=== PATIENT | female | born 1975 | race Caucasian/White ===

== ENCOUNTER 2017-07-03 11:33 | Observation (INO) | payer OTHER ==
[2017-07-03] MEDS ORDERED: ONDANSETRON 4 MG/2 ML VIAL IVP ONE (11:59)
[2017-07-03 12:21] LABS: % IMMATURE GRANULYOCYTES 0.6 % (0.0-1.1); ABSOLUTE IMMATURE GRANULOCYTES 0.06 10^3/uL (0.00-0.10); ADD DIFF? NO; ADD MORPH? NO; ADD SCAN? NO; ATYPICAL LYMPHOCYTE FLAG 0 (0-99); FRAGMENT RBC FLAG 0 (0-99); HEMATOCRIT 40.7 % (38.0-47.0); HEMOGLOBIN 13.5 g/dL (12.6-16.3); LEFT SHIFT FLG 0 (0-99); LIPEMIA HEMOLYSIS FLAG 80 (0-99); MEAN CELL HEMOGLOBIN 30.1 pg (27.9-34.1); MEAN CELL HEMOGLOBIN CONCENTR. 33.2 g/dL (32.4-36.7); MEAN CELL VOLUME 90.8 fL (81.5-99.8); MEAN PLATELET VOLUME 9.9 fL (8.7-11.7); PLATELET CLUMPS FLAG 0 (0-99); PLATELET COUNT 259 10^3/uL (150-400); RED BLOOD CELL COUNT 4.48 10^6/uL (4.18-5.33); RED CELL DISTRIBUTION WIDTH 12.5 % (11.5-15.2)
[2017-07-03 12:26] LABS: COLOR YELLOW; LEUKOCYTE ESTERASE,URINE NEGATIVE (NEGATIVE); NITRITE,URINE NEGATIVE (NEGATIVE)
[2017-07-03 12:29] LABS: MUCUS TRACE /lpf (NONE-1+)
[2017-07-03 12:33] LABS: ALANINE AMINOTRANSFERASE 38 IU/L (9-52); ALBUMIN 4.6 g/dL (3.5-5.0); ALKALINE PHOSPHATASE 79 IU/L (38-126); ANION GAP 14 mEq/L (8-16); ASPARTATE AMINOTRANSFERASE 22 IU/L (14-46); BILIRUBIN,TOTAL 0.7 mg/dL (0.1-1.4); CALCIUM 9.5 mg/dL (8.5-10.4); CARBON DIOXIDE 20 mEq/l (22-31); CHLORIDE 105 mEq/L (97-110); CREATININE 0.7 mg/dL (0.6-1.0); GLOMERULAR FILTRATION RATE > 60; GLUCOSE 92 mg/dL (70-100); POTASSIUM 4.3 mEq/L (3.5-5.2); SODIUM 139 mEq/L (134-144); TOTAL PROTEIN 7.4 g/dL (6.3-8.2)
--- NOTE | 2017-07-03 13:18 | EDPHY ---
H & P Stated Complaint: L SIDED ABDOMINAL PAIN, PANIC ATTACK HPI/ROS: CHIEF COMPLAINT: Flank and lower abdominal pain HISTORY OF PRESENT ILLNESS: This is a healthy 41-year-old female 0 2, 11 months , with the acute onset of left flank and lower abdominal pain earlier this morning. The pain has been persistent. It is severe. She has not taken any medications for this pain. She denies fever, dysuria, urgency, frequency, and hematuria. REVIEW OF SYSTEMS: A ten point review of systems was performed and is negative with the exception of the items mentioned in the HPI. Past medical history: 0 2 Past surgical history: section x2 Family history: Noncontributory Social history: She lives in [facility]. She is here for a conference. No tobacco use. Social alcohol. General Appearance: Alert. Crying, rubbing that her left lower abdomen. Vital signs reviewed. Eyes: Pupils equal and round, no conjunctival injection, no discharge. Anicteric. ENT, Mouth: Mucous membranes are moist, no oropharyngeal erythema or edema. Neck: No lymphadenopathy, supple. Respiratory: Lungs are clear to auscultation; no wheezes, rales, or rhonchi. Cardiovascular: Regular rate and rhythm; no murmur, rub, or gallop. Gastrointestinal: Abdomen is soft and nontender, no masses or organomegaly, bowel sounds normal. Skin: Warm and dry, no rashes on exposed skin, normal color. Back: Nontender to palpation over the thoracolumbar spine. Left CVA tenderness. Extremities: No lower extremity edema, no calf tenderness or swelling. Know left hip tenderness and no pain with active range of motion of the left hip. Neurological: Alert and oriented. Moving all four extremities easily and equally. Psychiatric: Normal affect. - Personal History LMP (Females 10-55): Unknown Current Tetanus Diphtheria and Acellular Pertussis (TDAP): Yes Tetanus Vaccine Date: < 10 YEARS - Medical/Surgical History Hx Asthma: No Hx Chronic Respiratory Disease: No Hx Diabetes: No Hx Cardiac Disease: No Hx Renal Disease: No Hx Cirrhosis: No Hx Alcoholism: No Hx HIV/AIDS: No Hx Splenectomy or Spleen Trauma: No Other PMH: DENIES - Social History Smoking Status: Never smoked Constitutional: Initial Vital Signs Temperature (C) 36.6 C 07/03/17 11:38 Heart Rate 72 07/03/17 11:38 Respiratory Rate 16 10/06/17 11:38 Blood Pressure 121/77 H 07/03/17 11:38 O2 Sat (%) 100 07/03/17 11:38 O2 Delivery Mode Room Air Allergies/Adverse Reactions: No Known Allergies Allergy (Verified 07/03/17 19:28) Home Medications: Medication Instructions Recorded Hydrocodone/APAP 5/325 [[place] 2 tab PO Q4HRS PRN #7 tab 07/04/17 5/325 (*)] Ibuprofen [Motrin (*)] 600 mg PO Q6HRS PRN tab 07/04/17 Medical Decision Making ED Course/Re-evaluation: Left flank and lower abdominal pain. Differential includes ureterolithiasis, pyelonephritis, ovarian cyst, and ovarian torsion. She does not have hematuria. Her presentation is suggestive of ureterolithiasis. She is not . 1 L normal saline IV administered. She has also received Zofran prior to my evaluation. Toradol ordered. CT of the abdomen and pelvis ordered. CT scan reported to me by Dr. Paz shows a 5 x 4 cm complex cyst that appears to be adjacent to or related to the left adnexa. There is some stranding in the posterior mesenteric in the mesentery, posterior to the cecum. The appendix appears normal. Because of the acute and constant nature of her pain, ultrasound obtained. It was reported to me by Dr. Paz as showing a cyst that appears to be serpiginous. He wonders if there could be a fallopian tube torsion versus pyosalpinx. Patient initially declined pain medication. She has been serially examined by me while in the emergency department. She has had persistent left lower quadrant tenderness and ultimately agreed to accept some pain medication. She was given Dilaudid intravenously with good effect. She was much more comfortable after receiving this pain medication. She has not been febrile while in the department. Her white blood cell count is only very mildly elevated. Infection seems unlikely. Urinalysis is negative for signs of urinary tract infection. I do not suspect pyelonephritis at this point. It seems that her pain is related to the mass that is seen in imaging studies. The exact nature of this mass not determined. I have spoken with Dr. Parker of OBGYN. Either she or one of her colleagues will assess the patient in the emergency department. Dr. Krystyna Huerta evaluated the patient in the emergency department. Pelvic exam was performed by her. In discussion with the patient it was determined that she will be admitted for pain control and observation. Surgical exploration was offered but is deferred at this point in time. - Data Points Laboratory Results: Laboratory Results 07/03/17 11:55 07/03/17 11:55 Medications Given: Discontinued Medications Hydrocodone Bitart/Acetaminophen ([place] 5/325) 2 tab PO Q4HRS PRN PRN Reason: Pain, Moderate Able to Take PO Stop: 07/13/17 21:46 Last Admin: 07/04/17 11:59 Dose: 2 tab Hydromorphone HCl (Dilaudid) 0.5 mg IVP EDNOW ONE Stop: 07/03/17 15:52 Last Admin: 07/03/17 16:06 Dose: 0.5 mg Hydromorphone HCl (Dilaudid) 0.5 mg IVP EDNOW ONE Stop: 07/03/17 16:33 Last Admin: 07/03/17 16:44 Dose: 0.5 mg Ibuprofen (Motrin) 600 mg PO Q6HRS PRN PRN Reason: Pain, Inflammatory Stop: 12/31/17 08:19 Last Admin: 07/04/17 12:02 Dose: 600 mg Ketorolac Tromethamine (Toradol) 15 mg IVP EDNOW ONE Stop: 07/03/17 13:36 Last Admin: 07/03/17 13:46 Dose: 15 mg Ketorolac Tromethamine (Toradol) 30 mg IVP ONCE ONE Stop: 07/03/17 21:47 Last Admin: 07/03/17 21:57 Dose: 30 mg Ondansetron HCl (Zofran) 4 mg IVP EDNOW ONE Stop: 07/03/17 12:00 Last Admin: 07/03/17 12:58 Dose: 4 mg Departure - Departure Disposition: [facility] Inpatient Acute Clinical Impression: Adnexal mass Condition: Good
[2017-07-03] MEDS ORDERED: KETOROLAC 30 MG/1 ML SDV IVP ONE ×2 (13:35→21:46)
[2017-07-03] MEDS ORDERED: HYDROmorphONE/DILAUDID 1 MG/ML INJ IVP ONE ×2 (15:51→16:32)
--- NOTE | 2017-07-03 20:26 | GCON ---
[f rep st] CONSULTATION DATE OF CONSULTATION: 07/03/2017 CHIEF COMPLAINT: Abdominal pain. HISTORY OF PRESENT ILLNESS: This is an otherwise healthy 41-year-old female who presents with an acu te onset abdominal pain this morning. The patient is originally from [place] and visiting in [facility]. Last night as part of a business get together she had some alcoholic drinks, probably in excess, states she woke up this morning with a headache and some abdominal pain that she attributed initially to a hang over, but that the headache resolved and the pain persisted and relocated to her left lower quadrant. As the pain persisted and actually worsened, she actually called a cab to prese nt to the emergency department and states that on the cab ride over there was fairly excruciating paige n. She describes the pain as left lower quadrant in nature, constant, better with IV narcotics. Not worse with palpation. She described it currently as an 8/10 in intensity with 10/10 previously. Jorje gambino did have nausea with the pain initially, but that has resolved. No vomiting. No diarrhea. No fev ers. No chills. In the emergency department she was medicated and hydrated. The pain is somewhat better although it persists. She was originally consulted by the on-call radiology services manager, Dr. Huerta. The patient had imagi ng including a noncontrast CT scan and an ultrasound which shows possible left-sided ovarian and/or f allopian tube pathology. Other than the pain, the patient has no complaints. PAST MEDICAL HISTORY: None. PAST SURGICAL HISTORY: section x2. FAMILY HISTORY: None. SOCIAL HISTORY: Lives in [place]. Social alcohol. Denies illicit drug use. Works for a [employer]. REVIEW OF SYSTEMS: A full 10-point review was performed and unless explicitly stated above, is other ann negative. PHYSICAL EXAMINATION: VITAL SIGNS: Temperature 36 even, blood pressure 117/85, heart rate 76, and s he is 94% on room air with respirations at 16. CONSTITUTIONAL: She is alert, in no apparent distress . She appears comfortable. EYES: Her pupils are equal, round, and reactive to light and accommodat ion. She has anicteric sclerae. EARS, NOSE, MOUTH AND THROAT: She has moist mucous membranes with normal hearing. No mucosal ulcers. CARDIOVASCULAR: She has a regular rate and rhythm without any m urmurs. RESPIRATORY: She has no respiratory distress. No rales, no rhonchi. GI: She has normoact lauryn bowel sounds. ABDOMEN: Soft. She is tender in the left pelvis just adjacent to the ASIS with d eep palpation. She has no rebound tenderness or guarding. She has a well-healed Pfannenstiel scar, consistent with previous surgical history. SKIN: Her skin is warm, normal color. No rashes. MUSCU LOSKELETAL: She has full muscle strength. No muscular tenderness and no range of motion issues. NE UROLOGIC: She is alert and oriented x3. Her cranial nerves 2-12 appear intact. She has no weakness , no numbness. PSYCHIATRIC: She is interacting appropriately. She is not anxious and she is not en cephalopathic. LYMPH, HEME AND IMMUNOLOGIC: She has no lymphadenopathy appreciated. LABORATORY: Leukocytosis marginally elevated at 10. There is a left shift. Her H and H are stable. Chemistries are unremarkable. IMAGING: Includes a CT scan, noncon, of her abdomen and pelvis, and a pelvic ultrasound. All of the images personally reviewed by me and are consistent with what appears to be left-sided hydrosalpinx with a complex cyst. I do not see any tics consistent with diverticular disease. I do not see any i nflammation in the right lower quadrant and the appendix appears normal. ASSESSMENT/PLAN: A 41-year-old female with left pelvic pain, likely secondary to the complex cyst. On my examination the patient appears nontoxic. Her imaging again is reassuring as well as her vital s and laboratory studies. I do not feel that the patient warrants emergent operative exploration alt pedro she does have some significant subjective pain which is really not re-created on physical exam. After discussing the case with Dr. Huerta, she will be admitted to the [facility] overnight for observ ation. I feel that if the patient's pain does persist tomorrow, it warrants exploration in the opera ting room as there could be some ischemia to that left ovary. I discussed my concerns with Dr. Huerta and the patient. We will plan to observe overnight, reevaluate in the morning. If her pain is better we will plan to send her home. If it is worse, I think that she warrants operative exploration. /[id number]/MODL
[2017-07-03] MEDS: HYDROCODONE/APAP 5/325 TAB PO PRN (21:57)
--- NOTE | 2017-07-03 23:33 | GHP ---
[f rep st] HISTORY AND PHYSICAL DATE OF ADMISSION: 07/03/2017 DIAGNOSIS ADMISSION: Left lower quadrant pain. HISTORY OF PRESENT ILLNESS: Patient is a 41-year-old 2, para 2-0-0-2, who is 11 months postp artum. She lives in [place] and has been out in [place] for a work conference. She was scheduled to fly out this evening, and the patient went with her colleagues last night and had a large amount of alcohol. She woke up in the morning and felt very hung over and noticed substantial left lower quadr ant pain. She states the pain got progressively worse throughout the day, so she came into the [facility] en[facility] room to be evaluated. Patient initially had been declining any pain medicine because she was ho ping she could just be discharged and fly back to [place]; however, ultimately she agreed to have some pain management and be evaluated and has since been admitted for observation status. PAST MEDICAL HISTORY: Negative. MEDICATIONS: None. PAST SURGICAL HISTORY: section x2. ALLERGIES: No known drug allergies. SOCIAL HISTORY: Patient is . She denies tobacco or drug use. She does drink alcohol sociall y. FAMILY MEDICAL HISTORY: Noncontributory. OBSTETRICAL/GYNECOLOGICAL HISTORY: Menarche age 15. Periods are normally regular; however, she just discontinued a month ago and her periods have just started resuming. Patient is a gra catalina 2, para 2-0-0-2. She has had 2 sections, one in 2013, the other one at the end of 2015 . Patient denies any history of any abnormal Pap smears or sexually transmitted diseases. REVIEW OF SYSTEMS: 10-point review of systems is negative with exception of the above mentioned pert inent positives of left lower quadrant pain, which radiates from the left groin to her left back. PHYSICAL EXAMINATION: VITAL SIGNS: Her blood pressure is 128/75, her heart rate is 76, respirations are 16, and her O2 saturation was 97%. GENERAL APPEARANCE: Alert and oriented x3. PSYCH: She has appropriate affect. MUSCULOSKELETAL: Grossly intact. NECK: Mobile and supple. Her heart rate is regular, regular. LUNGS: Clear to auscultation bilaterally. ABDOMEN: Soft, nondistended, nontend er. There is no guarding or rebound. EXTREMITIES: Reveal no calf tenderness or edema. PELVIC: Re veals a mobile, mid position uterus with no adnexal masses and no adnexal tenderness. IMAGING DATA: A spiral CT for kidney stones was done, which was negative, and a pelvic ultrasound wa s performed, which showed a uterus measuring 8.4 x 5.3 x 4.4 cm with no evidence of myometrial mass. Endometrial stripe is 9 mm and unremarkable. There is a fluid-filled tubular structure in the left adnexal region suggestive for complex hydrosalpinx. No significant blood flow was noted. There is a normal-appearing left ovary with a follicle on it and normal blood flow. Right ovary is normal with normal blood flow. Impression was complex left hydrosalpinx with thickened echogenic wall with no d efinitive blood flow, which could correspond to pyosalpinx versus torsion of the fallopian tube, and there was no evidence of ovarian torsion. LABORATORY DATA: White blood cell count is 10.6, her hemoglobin is 13.5, hematocrit is 40.5, her nathalie telets are 259. Her CMP was negative. Her HCG is negative. Her urinalysis is negative for blood an d positive for ketones and 1+ protein. ASSESSMENT AND PLAN: A 41-year-old 2, para 2-0-0-2 with left lower quadrant pain. Patient h as received pain medicine. Her pelvic and abdominal exam are completely benign. I consulted General Surgery, who agreed that the patient is benign. We had a long discussion with the patient about man agement options of surgical exploration for a left adnexal mass, which could be possibly chronic vers us inpatient management with pain management, and patient was supposed to fly home to [place] today. So, because her benign abdomen and pain seem to be relatively well controlled once on narcotics, mary anne l manage patient expectantly in the hospital overnight, unless her pain substantially increases tomor row, will discuss options of surgery further. The patient is going to be n.p.o. after midnight and w ill reassess patient in the morning. /[id number]/MODL
[2017-07-04] MEDS ORDERED: IBUPROFEN 600 MG TAB PO PRN (08:20)
--- NOTE | 2017-07-04 08:20 | SOAPPROG ---
SOAP Progress Note Assessment/Plan: Assessment: hd# 2 llq pain - substantially improved Plan: discharge plan and follow up with her doctor when she gets home 07/04/17 08:18 Subjective: patient is doing much better. slept overnight. tolerating diet. still having mild discomfort in the left lower quadrant but very tolerable. wants to go home and will follow up with doctor in [place]. voiding without difficulty. passing gas. Objective: Vital Signs Temp Pulse Resp BP Pulse Ox 36.3 C 69 16 95/58 L 93 07/04/17 04:52 07/04/17 04:52 07/04/17 04:52 07/04/17 04:52 07/04/17 04:52 Physical Exam - Physical Exam General Appearance: WD/WN, alert, no apparent distress Respiratory: chest non-tender, lungs clear, normal breath sounds Cardiac/Chest: normal peripheral pulses, regular rate, rhythm Abdomen: normal bowel sounds, non-tender, soft Pelvic Exam: deferred Rectal: deferred Skin: normal color, warm/dry Extremities: normal range of motion, non-tender, normal inspection, normal capillary refill Neuro/Psych: no motor/sensory deficits, alert, normal mood/affect, oriented x 3 ICD10 Worksheet Patient Problems: Problems Problem Status Onset Adnexal mass Acute
[2017-07-04 08:43] VITALS: BP 99/67; PULSE 70; RESP 20; TEMP 98.3; O2SAT 94
[2017-07-04] MEDS: HYDROCODONE/APAP 5/325 TAB PO PRN (11:59)
== END 2017-07-04 13:00 | disposition home or self-care (01) ==
LOC: FOB 19:45
PROVIDERS: ADMIT Obstetrics & Gynecology; ATTEND Obstetrics & Gynecology
DX: R10.32 Left lower quadrant pain (principal); N83.8 Other noninflammatory disorders of ovary, fallopian tube and broad ligament; K59.00 Constipation, unspecified
CPT/HCPCS: 74176; 76856; G0378; J1170; J1885; J2405